=== PATIENT | female | born 1970 | race Caucasian/White ===

== ENCOUNTER → 2019-07-09 | Outpatient (CLI) | payer OTHER | LOC: COL.RAD 07:30 | DX: M47.812 Spondylosis without myelopathy or radiculopathy, cervical region (principal); M48.02 Spinal stenosis, cervical region | CPT/HCPCS: A9585 ==

== ENCOUNTER → 2019-09-26 | Outpatient (CLI) | payer OTHER | LOC: COL.RAD 08:15 | DX: R51 Headache (principal) ==

== ENCOUNTER → 2019-12-30 | Outpatient (CLI) | payer OTHER | LOC: MHCPAIN 08:20 | DX: M54.81 Occipital neuralgia (principal); M54.2 Cervicalgia; R51.9 Headache, unspecified; G89.29 Other chronic pain; M79.18 Myalgia, other site | CPT/HCPCS: G0463; J1040 ==

== ENCOUNTER → 2020-04-28 | Outpatient (CLI) | payer OTHER | LOC: MHCPAIN 07:58 | DX: M47.812 Spondylosis without myelopathy or radiculopathy, cervical region (principal); M54.2 Cervicalgia; M79.18 Myalgia, other site; M54.81 Occipital neuralgia; R51.9 Headache, unspecified | CPT/HCPCS: G0463 ==

== ENCOUNTER → 2020-04-29 | Outpatient (CLI) | payer OTHER | LOC: MHCPAIN 12:27 | DX: M47.812 Spondylosis without myelopathy or radiculopathy, cervical region (principal); M54.81 Occipital neuralgia; R51.9 Headache, unspecified ==

== ENCOUNTER → 2020-05-10 | Outpatient (CLI) | payer OTHER | LOC: MHCPAIN 09:04 | DX: M47.812 Spondylosis without myelopathy or radiculopathy, cervical region (principal); M79.18 Myalgia, other site; M54.81 Occipital neuralgia; M54.2 Cervicalgia; R51.9 Headache, unspecified | CPT/HCPCS: G0463 ==

== ENCOUNTER → 2020-05-13 | Outpatient (CLI) | payer OTHER | LOC: MHCPAIN 07:33 | DX: M47.812 Spondylosis without myelopathy or radiculopathy, cervical region (principal); M54.2 Cervicalgia; R51.9 Headache, unspecified | CPT/HCPCS: J1040 ==

== ENCOUNTER → 2020-07-23 | Outpatient (CLI) | payer OTHER | LOC: COL.RAD 07-22 08:15 | DX: M47.812 Spondylosis without myelopathy or radiculopathy, cervical region (principal); M48.02 Spinal stenosis, cervical region; R90.82 White matter disease, unspecified; H53.8 Other visual disturbances; R20.2 Paresthesia of skin | CPT/HCPCS: A9585 ==